=== PATIENT | female | born 1995 | race Caucasian/White ===

== ENCOUNTER 2020-12-12 08:00 | Inpatient (IN) | payer OTHER ==
[2020-12-12 09:38] LABS: BASO % 0.3 % (0-2.0); EOS % 0.7 % (0-4.5); HEMATOCRIT 30.9 % (32.4-45.2); HEMOGLOBIN 10.6 GM/dL (10.7-15.3); LYMPH % 15.9 % (8-40); MCH 28.9 pg (25.7-33.7); MCHC 34.4 g/dl (32.0-36.0); MEAN CELL VOLUME 84.2 fl (80-96); MEAN PLT VOLUME 10.3 fl (7.5-11.1); MONO % 5.4 % (3.8-10.2); NEUT % 77.7 % (42.8-82.8); PLATELET COUNT 220 10^3/uL (134-434); RBC 3.67 M/mm3 (3.60-5.2); RDW 15.6 % (11.6-15.6); WHITE BLOOD COUNT 8.1 K/mm3 (4.0-10.0)
[2020-12-12 09:40] LABS: INR 0.86 (0.83-1.09); PROTHROMBIN TIME (PATIENT) 10.4 SEC (9.7-13.0)
[2020-12-12 09:43] LABS: ACTIVATED PTT 26.5 SECONDS (25.2-36.5)
[2020-12-12 09:57] VITALS: BMI 46.0
[2020-12-12 10:16] LABS: CALCIUM 8.4 mg/dL (8.5-10.1)
[2020-12-12 10:19] LABS: CREATININE 0.5 mg/dL (0.55-1.3)
[2020-12-12] MEDS ORDERED: DINOPROSTONE 10 MG VAGINAL SUPPOSITORY VG ONE (10:30)
[2020-12-12 10:59] LABS: HIV INTERPRETATION NEGATIVE (NEGATIVE)
[2020-12-12] MEDS: ELECTROLYTE-148 SOLN 1,000 ML IV SCH (19:55)
[2020-12-12] MEDS ORDERED: BUTORPHANOL TARTRATE 2 MG/ML VIAL IVPB ONE (21:35)
[2020-12-12] MEDS ORDERED: PROMETHAZINE HCL 25 MG/1 ML VIAL IVPB ONE (21:35)
[2020-12-12] MEDS ORDERED: PROMETHAZINE HCL 25 MG/1 ML VIAL ONE (21:38)
[2020-12-12] MEDS ORDERED: BUTORPHANOL TARTRATE 2 MG/ML VIAL ONE (21:38)
[2020-12-12] MEDS: MISOPROSTOL 25 MCG TABLET (COMPOUNDED BY PHARMACY) PO SCH (23:00)
[2020-12-13] MEDS: MISOPROSTOL 25 MCG TABLET (COMPOUNDED BY PHARMACY) PO SCH ×4 (03:00→18:48)
[2020-12-13] MEDS ORDERED: PCA PUMP NR ONE (03:11)
[2020-12-13] MEDS ORDERED: FENTANYL/BUPIVACAINE/NS/PF - PCEA - 50 ML DISP.SYRIN EP ONE ×5 (03:11→20:07)
[2020-12-13] MEDS ORDERED: BUPIVACAINE HCL/PF 0.25% (2.5MG/ML) 10 ML VIAL ONE ×2 (03:19→22:01)
[2020-12-13] MEDS: FENTANYL/BUPIVACAINE/NS/PF - PCEA - 50 ML DISP.SYRIN EP SCH ×2 (03:55→08:20)
[2020-12-13] MEDS ORDERED: NALOXONE HCL 0.4 MG/ML VIAL IVPUSH PRN (04:07)
[2020-12-13 05:45] LABS: COCAINE, UR NEGATIVE (NEGATIVE); METHADONE, UR NEGATIVE (NEGATIVE); OPIATES, URI NEGATIVE (NEGATIVE); URINE AMPHETAMINES NEGATIVE (NEGATIVE); URINE BARBITURATES NEGATIVE (NEGATIVE); URINE BENZODIAZEPINES NEGATIVE (NEGATIVE)
[2020-12-13 05:46] LABS: PHENCYCLIDINE,URINE NEGATIVE (NEGATIVE)
[2020-12-13] MEDS ORDERED: ACETAMINOPHEN/CAFFEINE/BUTALBITAL 1 TAB PO SCH ×2 (10:00)
[2020-12-13] MEDS: ELECTROLYTE-148 SOLN 1,000 ML IV SCH (10:00)
[2020-12-13] MEDS: DOCUSATE SODIUM 100 MG CAPSULE (FP) PO SCH (11:15)
[2020-12-13] MEDS ORDERED: OXYTOCIN 30 UNITS in 0.9% NS 30 UNIT/500 ML INFUS.BAG IVPB SCH (14:00)
[2020-12-13] MEDS ORDERED: OXYTOCIN 30 UNITS in 0.9% NS 30 UNIT/500 ML INFUS.BAG IVPB ONE (14:24)
[2020-12-13] MEDS ORDERED: CITRIC ACID/SODIUM CITRATE 30 ML UNIT-DOSE CUP PO ONE (23:03)
[2020-12-13] MEDS ORDERED: OXYTOCIN 20 UNITS in 0.9% NS 20 UNIT/1,000 ML INFUS.BAG IV ONE (23:08)
[2020-12-13] MEDS ORDERED: LIDOCAINE HCL/EPINEPHRINE/PF 10 ML VIAL ONE (23:30)
[2020-12-13] MEDS ORDERED: CLINDAMYCIN PHOSPHATE 600 MG/4 ML VIAL ONE (23:40)
[2020-12-13] MEDS ORDERED: PHENYLEPHRINE HCL 10 MG/1 ML SINGLE DOSE VIAL ONE (23:42)
[2020-12-13] MEDS ORDERED: CLINDAMYCIN 900 MG PREMIX IVPB 900 MG/50 ML BAG IVPB ONE (23:46)
[2020-12-13] MEDS ORDERED: ONDANSETRON 4 MG/2 ML VIAL ONE (23:55)
[2020-12-13] MEDS ORDERED: morphine SULFATE/PF 0.5 MG/ML (2cc Syringe - QUVA) ONE ×3 (23:57)
[2020-12-14] MEDS ORDERED: OXYTOCIN 10 UNITS/ML VIAL ONE ×2 (00:10→00:16)
[2020-12-14 01:16] LABS: CORD HCO3 21.8 mmHg (20-29); CORD PCO2 101.6 mmHg (30-78)
[2020-12-14] MEDS ORDERED: WITCH HAZEL 50% (TUCKS) 40 PAD/JAR PAD TP PRN (01:17)
[2020-12-14] MEDS ORDERED: BISACODYL 10 MG SUPP.RECT RC PRN (01:17)
[2020-12-14] MEDS ORDERED: oxyCODONE HCL 5 MG TABLET PO PRN (01:17)
[2020-12-14] MEDS ORDERED: METHYLERGONOVINE MALEATE 0.2 MG/1 ML AMP IM PRN (01:17)
[2020-12-14] MEDS ORDERED: BENZOCAINE 28 GM HEMORRHOIDAL OINTMENT TP PRN (01:17)
[2020-12-14] MEDS ORDERED: BENZOCAINE 20% 57 GM BOTTLE TP PRN (01:17)
[2020-12-14 01:19] LABS: CORD BASE EXCESS -12.1 mmol/L (0-2); CORD HCO3 18.7 mmHg (20-29); CORD PCO2 63.5 mmHg (30-78); CORD pH 7.087 (7.14-7.44)
[2020-12-14 01:23] LABS: CORD pH 6.949 (7.14-7.44)
[2020-12-14] MEDS ORDERED: OXYTOCIN 20 UNITS in 0.9% NS 20 UNIT/1,000 ML INFUS.BAG IV SCH (01:30)
[2020-12-14] MEDS ORDERED: IBUPROFEN 800 MG/8 ML IJ IVPB ONE (01:35)
[2020-12-14] MEDS: IBUPROFEN 800 MG/8 ML IJ IVPB PRN ×2 (01:50→15:13)
[2020-12-14] MEDS: CLINDAMYCIN 600MG PREMIX IVPB 600 MG/50 ML BAG IVPB SCH ×3 (02:45→17:40)
[2020-12-14] MEDS ORDERED: ENOXAPARIN NA (PORCINE) 40 MG/0.4 ML DISP.SYRIN SQ SCH (13:00)
[2020-12-14] MEDS: FONDAPARINUX SODIUM 2.5 MG/0.5 ML DISP.SYRIN SQ SCH (13:39)
[2020-12-14] MEDS: DOCUSATE SODIUM 100 MG CAPSULE (FP) PO SCH ×3 (15:07→22:21)
[2020-12-15] MEDS: ACETAMINOPHEN 325 MG TABLET (FP) PO PRN ×3 (03:27→17:48)
[2020-12-15] MEDS: IBUPROFEN 600 MG TABLET (FP) PO PRN ×3 (03:27→17:48)
[2020-12-15] MEDS: FERROUS SO4 325 MG TABLET (FP) PO SCH ×2 (09:00→17:48)
[2020-12-15] MEDS: PRENATAL VITAMINS W/ FOLIC ACID TABLET (FP) PO SCH (09:50)
[2020-12-15 09:51] LABS: BASO % 0.6 % (0-2.0); EOS % 0.1 % (0-4.5); HEMATOCRIT 26.7 % (32.4-45.2); HEMOGLOBIN 8.9 GM/dL (10.7-15.3); LYMPH % 11.2 % (8-40); MCH 28.1 pg (25.7-33.7); MCHC 33.2 g/dl (32.0-36.0); MEAN CELL VOLUME 84.4 fl (80-96); MONO % 5.3 % (3.8-10.2); NEUT % 82.8 % (42.8-82.8); PLATELET COUNT 160 10^3/uL (134-434); RBC 3.16 M/mm3 (3.60-5.2); RDW 16.2 % (11.6-15.6); WHITE BLOOD COUNT 9.1 K/mm3 (4.0-10.0)
[2020-12-15] MEDS: FONDAPARINUX SODIUM 2.5 MG/0.5 ML DISP.SYRIN SQ SCH (11:31)
[2020-12-16] MEDS: IBUPROFEN 600 MG TABLET (FP) PO PRN ×3 (02:46→21:33)
[2020-12-16] MEDS: SENNOSIDES/DOCUSATE COMBO (SENNA PLUS) TABLET (UD) PO PRN ×2 (02:46→21:33)
[2020-12-16] MEDS: PRENATAL VITAMINS W/ FOLIC ACID TABLET (FP) PO SCH (09:41)
[2020-12-16] MEDS: FERROUS SO4 325 MG TABLET (FP) PO SCH ×2 (09:41→17:11)
[2020-12-16] MEDS: FONDAPARINUX SODIUM 2.5 MG/0.5 ML DISP.SYRIN SQ SCH (11:21)
[2020-12-16] MEDS: ACETAMINOPHEN 325 MG TABLET (FP) PO PRN (15:55)
[2020-12-17] MEDS: IBUPROFEN 600 MG TABLET (FP) PO PRN (01:54)
[2020-12-17] MEDS: ACETAMINOPHEN 325 MG TABLET (FP) PO PRN (01:55)
[2020-12-17 08:53] LABS: BASO % 0.6 % (0-2.0); EOS % 1.6 % (0-4.5); HEMATOCRIT 27.5 % (32.4-45.2); HEMOGLOBIN 9.2 GM/dL (10.7-15.3); LYMPH % 20.2 % (8-40); MCH 28.6 pg (25.7-33.7); MCHC 33.5 g/dl (32.0-36.0); MEAN CELL VOLUME 85.6 fl (80-96); MEAN PLT VOLUME 9.7 fl (7.5-11.1); MONO % 4.7 % (3.8-10.2); NEUT % 72.9 % (42.8-82.8); PLATELET COUNT 218 10^3/uL (134-434); RBC 3.21 M/mm3 (3.60-5.2); RDW 16.1 % (11.6-15.6); WHITE BLOOD COUNT 5.3 K/mm3 (4.0-10.0)
[2020-12-17] MEDS: PRENATAL VITAMINS W/ FOLIC ACID TABLET (FP) PO SCH (09:11)
[2020-12-17] MEDS: FERROUS SO4 325 MG TABLET (FP) PO SCH (09:11)
[2020-12-17 10:49] VITALS: BP 112/86; PULSE 92; TEMP 98.4
[2020-12-17] MEDS: FONDAPARINUX SODIUM 2.5 MG/0.5 ML DISP.SYRIN SQ SCH (12:00)
== END 2020-12-17 12:25 | disposition home or self-care (01) | DRG 540 ==
LOC: JLDR 08:00 → J3W 12-14 03:33
PROVIDERS: ADMIT Obstetrics & Gynecology; ATTEND Obstetrics & Gynecology
PROC: 10D00Z1 Extraction of Products of Conception, Low, Open Approach (ICD-10-PCS; principal; 2020-12-14)
PROC: 0DNW0ZZ Release Peritoneum, Open Approach (ICD-10-PCS; 2020-12-14)
DX: O61.0 Failed medical induction of labor (principal); O76 Abnormality in fetal heart rate and rhythm complicating labor and delivery; O48.0 Post-term pregnancy; O99.214 Obesity complicating childbirth; E66.01 Morbid (severe) obesity due to excess calories; O77.0 Labor and delivery complicated by meconium in amniotic fluid; O99.324 Drug use complicating childbirth; F12.10 Cannabis abuse, uncomplicated; N73.6 Female pelvic peritoneal adhesions (postinfective); Z3A.40 40 weeks gestation of pregnancy; Z37.0 Single live birth; Z88.0 Allergy status to penicillin
CPT/HCPCS: 36415; 36600; 80048; 80307; 82803; 85025; 85610; 85730; 86769; 86780; 86850; 86900; 86901; 87389; 94010; C9803; U0003; U0005